=== PATIENT | male | born 1975 | race Caucasian/White ===

== ENCOUNTER 2023-11-07 10:01 | Emergency (ER) | payer BC, SELFPAY ==
[2023-11-07 10:09] VITALS: BP 157/100
--- NOTE | 2023-11-07 11:42 | ED.GENMED ---
History of Present Illness
General
Chief Complaint: Skin Surface Trauma
Time Seen by Provider: 11/07/23 10:51
Travel History
Have you had any contact with someone who has COVID-19?: No
Do you have any symptoms of coronavirus? Fever > 100 degrees, chills, cough, shortness of breath, sore throat, loss of taste or smell, muscle aches, or headache?: No
History of Present Illness
History of Present Illness:
48-year-old male presents to the emergency department for evaluation of an avulsion laceration to the right third finger sustained while using a mandolin knife last night. He dressed the wound however when attempting to clean it this morning noted
increased bleeding prompting him to come to the emergency department. Last tetanus was within the past 2 years
Past History
Past History
ED Past Medical History: None
Social History
Personal:
Living: with family
Employment: Employed
Review of Systems
Review of Systems
Allergies reviewed?: Yes
All Other Systems: ROS reviewed and negative except as documented in HPI and ROS
Phy Exam
Physical Exam
Physical Exam:
GEN: Well appearing, NAD, WDWN
HEENT: Oral mucosa moist, no scleral icterus
Cardiac: Regular rate
Lung: No respiratory distress, no tachypnea
MSK: No gross deformity or injuries
Skin: Good color, no pallor or jaundice, no rashes. 1.5 cm avulsion laceration to the right third finger pad, the tissue flap is well adhered and there is no active bleeding, the flap is somewhat devitalized and pale
Neuro: AO x3, moves all extremities freely
Psych: Calm, cooperative
Course
Vital Signs
Initial and Last Documented VS:
Initial Vital Signs
Temp Pulse Resp BP Pulse Ox
97.7 F 82 20 157/100 98
11/07/23 10:11/07/23 10:11/07/23 10:11/07/23 10:09 11/07/23 10:09
Last Documented Vital Signs
Temp Pulse Resp BP Pulse Ox
97.7 F 82 20 157/100 98
11/07/23 10:09 11/07/23 10:11/07/23 10:11/07/23 10:11/07/23 10:09
MDM/Problems Addressed
MDM/Problems Addressed:
Injury occurred greater than 12 hours ago, the flap is quite well adhered thus will treat supportively with pressure dressings, educated patient on wound care. The wound was irrigated copiously at bedside
*Critical Care Note
Total Time (30-74mins, 75-104mins- exclusive of procedures): Not Applicable
ED Attending Note
-
Portions of this chart may have been created with voice recognition software.� Occasional wrong word or��sound alike� substitutions may have occurred due to the inherent limitations of voice recognition software.
Discharge Plan
Departure
Patient Disposition: Home (Routine Discharge)
Date of Disposition: 11/07/23
Time of Disposition: 11:42
Patient with high blood pressure during this ER visit?: No
Discharge Problem:
Laceration of right middle finger
Instructions: Wound Care (DC)
Referrals:
NONE,* [Family Provider] -
Discharge Date and Time
Print Language: URDU
== END 2023-11-07 11:45 | disposition home or self-care (01) ==
LOC: EMR 10:01
PROVIDERS: EMERGENCY PHYSICIAN Emergency Medicine
DX: S61.212A Laceration without foreign body of right middle finger without damage to nail, initial encounter (principal); W26.0XXA Contact with knife, initial encounter
CPT/HCPCS: 99282